=== PATIENT | female | born 1995 | race Caucasian/White ===

== ENCOUNTER 2021-04-25 00:09 | Inpatient (IN) | payer OTHER ==
[~2021-04-25] VITALS: Ht 175.3 cm; Wt 65.8 kg
[2021-04-25] VITALS (9 sets, daily range): BP systolic 96–146; BP diastolic 63–90
--- NOTE | ~2021-04-25 | O ---
[facility] [place] [address] [place] [address] OPERATIVE REPORT Name: LUIS ANTONIO TAVAREZ Room #: 456-P [facility] IN M.R.#: [id number] Admission: 04/25/21 Attend Phys: Jose Hatch MD Discharge: Date of : 89 Report #: [id number] THIS REPORT FOR: cc: NO FAMILY PHYSICIAN or PCP NO FAMILY PHYSICIAN or PCP Jose Hatch MD ~ DOC #: [id number] Jose Hatch MD DATE OF SERVICE: 04/25/2021 PREOPERATIVE DIAGNOSIS: Acute appendicitis. POSTOPERATIVE DIAGNOSIS: Acute appendicitis. OPERATIVE PROCEDURE: Laparoscopic appendectomy. SURGEON: Jose Hatch MD. INDICATIONS FOR THE PROCEDURE: The patient is a 25-year-old female who presents with features of right lower quadrant pain and a CT scan that was done showed features of acute appendicitis. The patient was advised laparoscopic appendectomy. The patient showed understanding and agreed to proceed. PROCEDURE IN DETAIL: After explaining the patient in detail and informed consent was obtained, the patient was identified in the preoperative holding area. The patient was transferred to the operating room and was placed in supine position. Sequential compression devices were placed for DVT prophylaxis. Preoperative antibiotics were given. After induction of anesthesia, the abdomen was prepped and draped in a sterile fashion. Through a left upper quadrant stab incision and using Veress needle technique, pneumoperitoneum was created. Thereafter, through a 1 cm incision in the left lower quadrant and using Optiview technique, a 5 mm trocar was introduced, another 12 mm trocar was placed through a supraumbilical incision, another 5 mm trocar was placed through a suprapubic incision approximately about 3 cm above the pubic symphysis. On initial inspection, the appendix appeared inflamed. There were no features of rupture. A window was created in the mesoappendix and the appendix was divided at the base using a blue load stapler. Appendix was then retrieved using an EndoCatch and was retrieved using the umbilical incision. A thorough saline irrigation was given. Absolute hemostasis was ensured. The abdomen was then desufflated. Incisions were then closed with 4-0 Monocryl. The umbilical incision was closed in 2 layers using 0 Vicryl for the fascia. Skin was closed with 4-0 Monocryl for all the incisions. Dermabond was applied. The patient was stable at the end of the procedure. The patient was awoken from anesthesia and was transferred to the recovery room in stable condition. Estimated blood loss was approximately [address] [address] OPERATIVE REPORT Name: LUIS ANTONIO TAVAREZ Room #: 456-P [facility] IN .R.#: [id number] Admission: 04/25/21 Attend Phys: Jose Hatch MD Discharge: Date of : 89 Report #: [id number] CONDITION OF THE PATIENT: Stable. FLUIDS GIVEN: Per anesthesia notes. SPECIMEN SENT: Appendix. COMPLICATIONS: None. ANESTHESIA: General anesthesia. MD RADHA Carney/DELMER/EDUARD By: 1515 1622 Jose Hatch MD /nt
[2021-04-25 00:28] LABS: URINE BILIRUBIN NEGATIVE (Negative); URINE BLOOD 1+ (Negative); URINE CLARITY CLEAR; URINE COLOR YELLOW; URINE GLUCOSE-RANDOM* NEGATIVE (Negative); URINE KETONES TRACE (Negative); URINE LEUKOCYTES-REFLEX NEGATIVE (Negative); URINE NITRITE-REFLEX NEGATIVE (Negative); URINE PROTEIN (DIPSTICK) NEGATIVE (Negative); URINE SPECIFIC GRAVITY 1.015 (1.005-1.035); URINE UROBILINOGEN 0.2 E.U./dl (0.2-1.0)
[2021-04-25 00:30] LABS: ABSOLUTE NEUTROPHILS 9.9 thou/uL (1.4-8.2); BASOPHILS 0.7 % (0.0-2.0); EOSINOPHILS 0.9 % (0.0-3.0); HEMATOCRIT 37.8 % (37.0-47.0); HEMOGLOBIN 12.4 gm/dL (12.0-15.0); LYMPHOCYTES 20.7 % (24.0-44.0); MCH 29.5 pg (26.0-34.0); MCHC 32.7 g/dL (28.0-37.0); MCV 90.1 fL (80.0-100.0); MONOCYTES 4.5 % (1.0-8.0); PLATELET COUNT 230 thou/uL (150-400); POLYS 73.2 % (36.0-66.0); RBC 4.19 mil/uL (4.20-5.00); RDW 13.5 % (10.5-14.5); WBC 13.5 thou/uL (4.0-11.0)
[2021-04-25 00:39] LABS: CALCIUM 9.4 mg/dL (8.5-10.1); CREATININE 0.9 mg/dL (0.6-1.0); POTASSIUM 3.3 mmol/L (3.5-5.1)
[2021-04-25 00:41] LABS: BACTERIA-REFLEX 1-9 Few /HPF (None Seen); CASTS None Seen /LPF (None Seen); CRYSTALS None Seen /LPF (None Seen); MUCUS 0-3 Light strn/LPF (None Seen); SQUAMOUS 4-10 Moderate /LPF (0-3); URINE RBC 3-10 Few /HPF (NONE SEEN); URINE WBC-REFLEX 0-5 Rare /HPF (0-5)
[2021-04-25 00:45] LABS: ALBUMIN 4.5 g/dL (3.4-5.0); TOTAL BILIRUBIN 0.4 mg/dL (0.2-1.0); TOTAL PROTEIN 7.3 g/dL (6.4-8.2)
--- NOTE | 2021-04-25 05:57 | NUR ---
PT ARRIVED FROM ER @0410 THIS MORNING. A&OX4. ADMISSION DONE AND PT ORIIENTED TO THE UNIT. C/O ABDOMINAL PAIN. IV MORPHINE GIVEN. PT UP AD AVA TO THE BATHROOM. DENIES NAUSEA/V. IV INTACT AND FLUIDS INFUSING. CALL LIGHT AT REACH AND WILL CONT TO MONITOR. PT NPO FOR SURGERY
--- NOTE | 2021-04-25 09:44 | NUR ---
ASSESSMENT: CM REVIEWED CHART AND MET WITH PT AT THE BEDSIDE. PT IS ALERT AND ORIENTED X4. PT REPORTS LIVING IN A HOUSE WITH HER BOYFRIEND. PT WAS ADMITTED DUE TO APPENDICITIS. PT IS ON IV FLUIDS. PT REPORTS THAT SHE IS FULLY INDEPENDENT WITH ADLS AND AMBULATION. PT REPORTS HAVING NO PCP. CM ENCOURAGED PATIENT TO CALL THE NUMBER ON THE BACK OF HER INSURANCE CARD TO GET PHYSICIANS WHO ARE IN NETWORK. CM ALSO PROVIDED PATIENT WITH PCP PHYSICIANS HERE AT [facility]. CM WILL CONTINUE TO FOLLOW. PT DOES NOT ANTICIPATE ANY NEEDS FROM CM.
--- NOTE | 2021-04-25 17:35 | NUR ---
PATIENT ARRIVED TO FLOOR AT 1620 FROM OR. PATIENT ON ROOM AIR, INCISIONS D/C/I, RIGHT UPPER LIP SWOLLEN AND THROAT SORE, NO PAIN IN ABD, VITAL SIGNS STABLE, AND AFBRIELE. THIS RN GAVE REPORT TO PAXTON MENDES ON 4W PATIENT WILL GO TO ROOM 456 WHEN CLEAN.
--- NOTE | 2021-04-25 20:04 | NUR ---
PATIENT ARRIVED FROM RM. 444 VIA BED. VSS; FLUIDS INFUSING ON R AC W NO ISSUES. TELEMETRY INITIATED; SB/SR. VOICED GENERALIZED PAIN. BOYFRIEND AT BEDSIDE, CALLS NEEDED. FALL PRECAUTIONS IN PLACE. ENDORSED TO ONCOMING NURSE
[2021-04-26 02:57] VITALS: BP 105/67
--- NOTE | 2021-04-26 03:08 | NUR ---
PT CARE ASSUMED WITH PT IN BED WATCHING TV.PT IS A/O X4.PT IS UP WITH SBA.PT IS EDUCATED TO CALL FOR CALL WHEN NEEDED.PT HAS 4LAP SITE WITH DERMABAND C/D/I.PT IN TELE WITH NSR /SB.IV ACCESS ON LT AC AND RT WRIST WITH NS AT 126CC/HR.WILL CONTINUE TO MONITOR
[2021-04-26 05:49] VITALS: BP 116/78
[2021-04-26 08:07] VITALS: BP 115/82
[2021-04-26] MEDS ORDERED: HYDROCODON-ACE1 EAC7 PO (10:57)
[2021-04-26 11:07] VITALS: BP 115/82
--- NOTE | 2021-04-26 13:15 | NUR ---
Assumed pt care at 10 am today. VS stable 4 lap sites c/d/i. Oral pain meds given, awaiting response from MD with regards to pt concern of taking anti biotics post op. Call MD 2x awaiting call back. Diet amd medications are tolerated well. POC followed, pain managed with medication, IV removed.
--- NOTE | 2021-04-30 18:06 | PATH ---
[facility] [place] [address] PATHOLOGY RPT PROCEDURE Name: LUIS ANTONIO TAVAREZ Room #: 456-P [facility] IN M.R.#: [id number] Admission: 04/25/21 Date of : 89 Discharge: 04/26/21 Report #: [id number] Path Case #: [id number] [facility] Accession Number: [id number] . 01 Material submitted: . appendix - APPENDIX . 01 Clinical history: . LAPAROSCOPIC APPENDECTOMY APPENDICITIS . 02 Diagnosis: Appendix, appendectomy: - Marked acute appendicitis with acute serositis. - Fibrous obliteration of the tip. . (IUV:mml; 04/30/2021) QL 04/30/2021 1513 Local . 02 Electronically signed: . Ember Carrillo MD, Pathologist NPI- [id number] . 01 Gross description: . Fixative: Formalin Labeled: Appendix Appendix length: 6.9 cm Appendix diameter: 0.9 cm Mesoappendix: 5.1 x 1.6 x 0.9 cm Proximal margin: Stapled Serosa: Smooth, marin-pink with a focal area of purulent exudate measuring 1.1 x 0.9 cm and is located 4.1 cm in the surgical resection margin Cut surface: Marin-white Luminal diameter: 0.2 cm cm Perforation: No Lesions/abnormalities: Described above A1 Proximal margin (inked black) and distal tip, bisected A2 Mid appendix ([facility]; 04/27/2021) GZA/GZA 04/27/2021 1117 Local . 02 Pathologist provided ICD-10: K35.20 . 02 CPT . 871993 Specimen Comment: A courtesy copy of this report has been sent to [phone] Specimen Comment: Report sent to [address] [address] PATHOLOGY RPT PROCEDURE Name: LUIS ANTONIO TAVRAEZ Room #: 456-P [facility] IN M.R.#: [id number] Admission: 04/25/21 Date of : 89 Discharge: 04/26/21 Report #: [id number] Path Case #: [id number] Performed at: 01 [facility] [address] [id number] MD Jacques Mendez MD Phone: [phone] Performed at: [address] [place] [id number] MD Ember Carrillo MD Phone: [phone]
== END 2021-04-26 15:23 | disposition home or self-care (01) | DRG 343 ==
LOC: ER 00:09 → EROBS 02:50 → 4S 02:50 → 4W 18:09
PROVIDERS: Emergency Medicine; ADMIT Surgery; ATTEND Surgery
PROC: 0DTJ4ZZ Resection of Appendix, Percutaneous Endoscopic Approach (ICD-10-PCS; principal; 2021-04-25)
DX: K37 Unspecified appendicitis (principal)
CPT/HCPCS: 10045; 10047; 50010; 50101; 50249; 50386; 50411; 50555; 50558; 50739; 50740; 51489; 52265; 52266; 53310; 54022; 54118; 56462; 56525; 56526; 57257; 62110; 62900; 70005